=== PATIENT | male | born 1945 | race Caucasian/White ===

== ENCOUNTER → 2023-04-11 08:44 | Outpatient (REF) | payer MEDICARE, OTHER, SELFPAY ==
[2023-04-11 09:11] LABS: 24 Hour Urine Total Volume 3030 ml
== END ==
LOC: REG 08:44
PROVIDERS: ATTENDING PHYSICIAN Internal Medicine Cardiovascular Disease; FAMILY PHYSICIAN Internal Medicine
DX: R06.02 Shortness of breath (principal)
CPT/HCPCS: 81050; 82570

== ENCOUNTER → 2023-04-19 07:11 | Outpatient (REF) | payer MEDICARE, OTHER, SELFPAY | LOC: DHCBS MAIN 07:11 | PROVIDERS: ATTENDING PHYSICIAN Internal Medicine Cardiovascular Disease; FAMILY PHYSICIAN Internal Medicine | DX: R06.02 Shortness of breath (principal) | CPT/HCPCS: 93306 ==

== ENCOUNTER → 2023-04-25 10:17 | Outpatient (REF) | payer MEDICARE, OTHER, SELFPAY | LOC: MRI 3T 10:17 | PROVIDERS: ATTENDING PHYSICIAN Internal Medicine Cardiovascular Disease | DX: R06.02 Shortness of breath (principal) | CPT/HCPCS: 70553; A9575 ==